=== PATIENT | male | born 1945 | race Caucasian/White ===

== ENCOUNTER 2018-11-05 20:54 | Emergency (ER) | payer OTHER, SELFPAY ==
[2018-11-05 20:59] VITALS: BP 175/88; PULSE 87; RESP 16; TEMP 36.4; O2SAT 95
--- NOTE | 2018-11-05 21:10 | W.ED.GENAD ---
Discharge Plan Disposition Patient Disposition: HOME Condition: Stable Discharge Details Chief Complaint: Diabetes Clinical Impression: Insulin overdose Primary Care Provider: [facility],[place] ED Provider: Julio Kinsey Home Meds and New Rx's Prescriptions: No Action azithromycin 250 MG tablet 250 mg PO DIRECTED RF: 0 triamcinolone acetonide 80 GM cream 1 applic Topical DAILY RF: 0 Lubricant Eye Drops 15 ML drops 1 drp OU QID PRN PRNRF: 0 aspirin [Aspirin Low-Strength] 81 MG tablet,chewable 81 mg PO DAILY RF: 0 lovastatin 20 MG tablet 20 mg PO QPM RF: 0 albuterol sulfate 8.5 GM HFA aerosol inhaler 2 puff Inhalation QID PRN PRNRF: 0 lisinopril 40 MG tablet 20 mg PO DAILY RF: 0 clobetasol 118 ML lotion 1 applic Topical DAILY PRN PRNRF: 0 Spiriva with HandiHaler 30 CAP capsule, w/inhalation device 1 cap Inhalation DAILY RF: 0 Asmanex Twisthaler 220 MCG aerosol powdr breath activated 220 mcg Inhalation BID RF: 0 prednisone 20 MG tablet 20 mg PO DAILY RF: 0 Novolog U-100 Insulin aspart 100 unit/mL Solution 5 unit subcut .AC RF: 0 Lantus Solostar U-100 Insulin 100 unit/mL (3 mL) Insulin Pen 27 unit SUBCUT DAILY RF: 0 Discharge Instructions Additional Instructions: Hold your lantus dose tonight Take your medications as prescribed tomorrow If you become sweaty, weak or dizzy, check your sugar and if below 75 use your glucose pills. Return to the emergency department for persistent symptoms Medical Decision Making pt states about 45 minutes ago accidentally took 27units of novolog instead of his lantus. No symptoms at this time. Denies si/hi. Per uptodate time to peak is 1-3 hours, will observe here for a few hours pt over 3 hours from time of use, asymptomatic at this time, did have sugar of 60 at hour 1.5 but improved with food. Will d/c home. Differential Diagnosis accidental insulin use HPI General Mode of arrival: ambulatory. Date/Time Provider Initiated Documentation: 11/05/18 20:59. Limitations to Documentation: no limitations. Information obtained by: patient. History of Present Illness 73 year old M presents to the emergency department with the chief complaint of took wrong insulin, Patient reports no radiation. Patient started experiencing this minute(s) (45) and it has been constant. No relieving factors improve symptom(s), No exacerbating factors reported . Patient notes no other symptoms.. Patient did receive the following treatments prior to arrival, none Related Data Home Medications Medication Instructions Recorded Confirmed albuterol sulfate 2 puff INHALATION QID PRN PRN 10/03/13 11/05/18 aspirin [Aspirin Low-Strength] 81 mg PO DAILY 10/03/13 11/05/18 azithromycin 250 mg PO DIRECTED 10/03/13 10/03/13 carboxymethylcellulose sodium 1 drp OU QID PRN PRN 10/03/13 11/05/18 [Lubricant Eye] clobetasol 1 applic TOPICAL DAILY PRN PRN 10/03/13 11/05/18 lisinopril 20 mg PO DAILY 10/03/13 11/05/18 lovastatin 20 mg PO QPM 10/03/13 11/05/18 mometasone [Asmanex] 220 mcg INHALATION BID 10/03/13 11/05/18 prednisone 20 mg PO DAILY 10/03/13 10/03/13 tiotropium bromide [Spiriva 1 cap INHALATION DAILY 10/03/13 11/05/18 Handihaler] triamcinolone acetonide 1 applic TOPICAL DAILY 10/03/13 11/05/18 insulin aspart U-100 [Novolog 5 unit SUBCUT .AC 11/05/18 11/05/18 U-100 Insulin aspart] insulin glargine [Lantus Solostar 27 unit SUBCUT DAILY 11/05/18 11/05/18 U-100 Insulin] Allergies Allergy/AdvReac Type Severity Reaction Status Date / Time moxifloxacin Allergy hallucinati Unverified 11/05/18 21:06 ons General Stated Complaint: Diabetes FANY: 4 Review of Systems Review of Systems All systems reviewed & are unremarkable except as noted in HPI and below Constitutional Denies chills and Denies fever(s) Cardiovascular Denies dyspnea Respiratory Denies dyspnea Gastrointestinal Denies abdominal pain, Denies nausea and Denies vomiting Genitourinary Denies dysuria Musculoskeletal Denies joint swelling PFSH Social History Smoking/Tobacco Use Status: Former Tobacco Use Drug use: Never Substance use type: does not use Do you feel safe at home: Yes Do you feel safe in your relationship?: Yes Exam Const General: no acute distress Orientation: alert HENMT Head: normal to inspection Ears: external ears normal General nose exam: external nose normal Mouth: moist mucous membranes Eyes General: appearance normal, both eyes and all related structures Neck Neck: normal visual inspection Resp Effort & Inspection: normal respiratory effort and able to speak in complete sentences Cardio Rate: regular rate Skin General skin exam: no rashes or lesions noted Neuro General: alert and oriented x3 Extrem General: normal to inspection Psych Mental Status: mental status grossly normal Course Vital Signs Temperature 36.4 C L 11/05/18 20:59 Pulse 87 11/05/18 20:59 Respiratory Rate 16 11/05/18 20:59 Blood Pressure 175/88 H 11/05/18 20:59 Pulse Oximetry 95 11/05/18 20:59 Temperature 36.4 C L 11/05/18 20:59 Temperature Source Temporal Artery Scan 11/05/18 20:59 Pulse 87 11/05/18 20:59 Respiratory Rate 16 11/05/18 20:59 Respiratory Effort Non-Labored 11/05/18 21:04 Blood Pressure 175/88 H 11/05/18 20:59 Blood Pressure Position Sitting 11/05/18 20:59 Pulse Oximetry 95 11/05/18 20:59 Oxygen Delivery Method Room Air 11/05/18 20:59 Oxygen Flow Rate 0 11/05/18 20:59 Pain Level 0 11/05/18 20:59
--- NOTE | 2018-11-05 21:13 | ED.GENADUL_ITS ---
Discharge Plan Disposition Patient Disposition: HOME Condition: Stable Discharge Details Chief Complaint: Diabetes Clinical Impression: Insulin overdose Primary Care Provider: [facility],[place] ED Provider: Julio Kinsey Home Meds and New Rx's Prescriptions: No Action azithromycin 250 MG tablet 250 mg PO DIRECTED RF: 0 triamcinolone acetonide 80 GM cream 1 applic Topical DAILY RF: 0 Lubricant Eye Drops 15 ML drops 1 drp OU QID PRN PRNRF: 0 aspirin [Aspirin Low-Strength] 81 MG tablet,chewable 81 mg PO DAILY RF: 0 lovastatin 20 MG tablet 20 mg PO QPM RF: 0 albuterol sulfate 8.5 GM HFA aerosol inhaler 2 puff Inhalation QID PRN PRNRF: 0 lisinopril 40 MG tablet 20 mg PO DAILY RF: 0 clobetasol 118 ML lotion 1 applic Topical DAILY PRN PRNRF: 0 Spiriva with HandiHaler 30 CAP capsule, w/inhalation device 1 cap Inhalation DAILY RF: 0 Asmanex Twisthaler 220 MCG aerosol powdr breath activated 220 mcg Inhalation BID RF: 0 prednisone 20 MG tablet 20 mg PO DAILY RF: 0 Novolog U-100 Insulin aspart 100 unit/mL Solution 5 unit subcut .AC RF: 0 Lantus Solostar U-100 Insulin 100 unit/mL (3 mL) Insulin Pen 27 unit SUBCUT DAILY RF: 0 Discharge Instructions Additional Instructions: Hold your lantus dose tonight Take your medications as prescribed tomorrow If you become sweaty, weak or dizzy, check your sugar and if below 75 use your glucose pills. Return to the emergency department for persistent symptoms Medical Decision Making pt states about 45 minutes ago accidentally took 27units of novolog instead of his lantus. No symptoms at this time. Denies si/hi. Per uptodate time to peak is 1-3 hours, will observe here for a few hours pt over 3 hours from time of use, asymptomatic at this time, did have sugar of 60 at hour 1.5 but improved with food. Will d/c home. Differential Diagnosis accidental insulin use HPI General Mode of arrival: ambulatory . Date/Time Provider Initiated Documentation: 11/05/18 20:59 . Limitations to Documentation: no limitations . Information obtained by: patient . History of Present Illness 73 year old M presents to the emergency department with the chief complaint of took wrong insulin, Patient reports no radiation. Patient started experiencing this minute(s) (45) and it has been constant. No relieving factors improve symptom(s), No exacerbating factors reported . Patient notes no other symptoms.. Patient did receive the following treatments prior to arrival, none Related Data Home Medications Medication Instructions Recorded Confirmed albuterol sulfate 2 puff INHALATION QID PRN PRN 10/03/13 11/05/18 aspirin [Aspirin Low-Strength] 81 mg PO DAILY 10/03/13 11/05/18 azithromycin 250 mg PO DIRECTED 10/03/13 10/03/13 carboxymethylcellulose sodium 1 drp OU QID PRN PRN 10/03/13 11/05/18 [Lubricant Eye] clobetasol 1 applic TOPICAL DAILY PRN PRN 10/03/13 11/05/18 lisinopril 20 mg PO DAILY 10/03/13 11/05/18 lovastatin 20 mg PO QPM 10/03/13 11/05/18 mometasone [Asmanex] 220 mcg INHALATION BID 10/03/13 11/05/18 prednisone 20 mg PO DAILY 10/03/13 10/03/13 tiotropium bromide [Spiriva 1 cap INHALATION DAILY 10/03/13 11/05/18 Handihaler] triamcinolone acetonide 1 applic TOPICAL DAILY 10/03/13 11/05/18 insulin aspart U-100 [Novolog 5 unit SUBCUT .AC 11/05/18 11/05/18 U-100 Insulin aspart] insulin glargine [Lantus Solostar 27 unit SUBCUT DAILY 11/05/18 11/05/18 U-100 Insulin] Allergies Allergy/AdvReac Type Severity Reaction Status Date / Time moxifloxacin Allergy hallucinati Unverified 11/05/18 21:06 ons General Stated Complaint: Diabetes FANY: 4 Review of Systems Review of Systems All systems reviewed & are unremarkable except as noted in HPI and below Constitutional Denies chills and Denies fever(s) Cardiovascular Denies dyspnea Respiratory Denies dyspnea Gastrointestinal Denies abdominal pain, Denies nausea and Denies vomiting Genitourinary Denies dysuria Musculoskeletal Denies joint swelling PFSH Social History Smoking/Tobacco Use Status: Former Tobacco Use Drug use: Never Substance use type: does not use Do you feel safe at home: Yes Do you feel safe in your relationship?: Yes Exam Const General: no acute distress Orientation: alert HENMT Head: normal to inspection Ears: external ears normal General nose exam: external nose normal Mouth: moist mucous membranes Eyes General: appearance normal, both eyes and all related structures Neck Neck: normal visual inspection Resp Effort & Inspection: normal respiratory effort and able to speak in complete sentences Cardio Rate: regular rate Skin General skin exam: no rashes or lesions noted Neuro General: alert and oriented x3 Extrem General: normal to inspection Psych Mental Status: mental status grossly normal Course Vital Signs Temperature 36.4 C L 11/05/18 20:59 Pulse 87 11/05/18 20:59 Respiratory Rate 16 11/05/18 20:59 Blood Pressure 175/88 H 11/05/18 20:59 Pulse Oximetry 95 11/05/18 20:59 Temperature 36.4 C L 11/05/18 20:59 Temperature Source Temporal Artery Scan 11/05/18 20:59 Pulse 87 11/05/18 20:59 Respiratory Rate 16 11/05/18 20:59 Respiratory Effort Non-Labored 11/05/18 21:04 Blood Pressure 175/88 H 11/05/18 20:59 Blood Pressure Position Sitting 11/05/18 20:59 Pulse Oximetry 95 11/05/18 20:59 Oxygen Delivery Method Room Air 11/05/18 20:59 Oxygen Flow Rate 0 11/05/18 20:59 Pain Level 0 11/05/18 20:59
--- NOTE | 2018-11-05 23:02 | NUR.NOTE ---
Nursing Note: patient is pink, warm and dry, snack has been eaten, no hypoglycemic symptoms at present.
[2018-11-05 23:37] VITALS: PULSE 82; RESP 16
== END 2018-11-05 23:37 | disposition home or self-care (01) ==
PROVIDERS: Emergency Provider Emergency Medicine
DX: T38.3X1A Poisoning by insulin and oral hypoglycemic [antidiabetic] drugs, accidental (unintentional), initial encounter (principal); E11.649 Type 2 diabetes mellitus with hypoglycemia without coma; Z79.4 Long term (current) use of insulin
CPT/HCPCS: 36416; 82962; 99282